=== PATIENT | female | born 1970 | race Two or more races ===

== ENCOUNTER 2025-05-01 08:52 | Outpatient (AMB) | payer MEDICAID, SELFPAY ==
[2025-05-01 09:22] VITALS: BP 136/80; PULSE 62; RESP 18; TEMP 36.1; O2SAT 97; BMI 41.1
--- NOTE | 2025-05-01 09:22 | ORTHONT_ITS ---
Vital signs 05/01/25 09:22 Height 1.57 m Height Method Measured Weight 101.831 kg Weight Measurement Method Standing Scale BMI 41.1 BP 136/80 H Blood Pressure Source Automatic Cuff Blood Pressure Location Right Upper Arm Position Sitting Respiration 18 Pulse 62 Pulse Source Monitor Temp 96.9 F Temp Source Temporal Artery Scan Pulse Oximetry (%) 97 Oxygen Delivery Method Room Air Med/Allergies Allergies & Medications Allergies No Known Drug Allergies Allergy (Verified 05/01/25 09:24) Medication Reconciliation meloxicam 7.5 mg tablet 7.5 mg PO QDAY #45 tabs 05/01/25 [Rx] Exam Exam Patient is in no acute distress and is cooperative with the examination today. Breathing is nonlabored. Patient has a normal mood and affect. Bilateral extremities were evaluated and demonstrates sensation intact to light touch. Palpable pedal pulses are present. No significant edema is present. Bilateral hips were examined. The patient has no pain with log roll of the hips. Internal rotation to 30 degrees and external rotation to 30 degrees is painless. Negative FADIR. Right knee was examined today. The right knee is in reasonable alignment. Range of motion from 0-120 degrees. Knee is stable to varus and valgus as well as AP translation with <5mm. Patient has a negative McMurrays. There is no pain with patellofemoral compression and no crepitus noted. The knee is nontender to palpation. Left knee was examined today. The left knee is in varus alignment. Range of motion from 0-115 degrees. Knee is stable to varus and valgus as well as AP translation with <5mm. Patient has a negative McMurrays. There is no pain with patellofemoral compression and no crepitus noted. The knee is tender to palpation medially. Left knee x-rays history demonstrates a meniscus tear as well as areas of high- grade chondral loss of the medial compartment Assessment and Plan Problem List (1) Arthritis of knee, left: Status: Acute Plan: Patient is a pleasant 54-year-old female with left knee pain and left knee arthritis. We discussed different treatment options. I would like to get a weightbearing x-ray to better evaluate the severity of the arthritis. On the MRI there appears to be large areas of chondral loss. We will get authorization for injections at the next visit Office Procedures GNS Level of Care Nursing/Assessment Patient Status: Initial/New Patient Nursing Assessment/Reassesment: Medication Reconciliation, Update PMH in EMR and Vital Signs Coordination of Care: Complex Care and Chronic Disease 1-5, Education Complex Pt/Fam, Consent,records obtained, informed consent, Lab and Imaging orders, Res ults/Orders obtained and Staff clarify orders Special Needs: Language special needs New Patient Charge New Patient Point Assignment: 1109 New Patient Point Charge: TECHNICAL SUPPORT INTERN Level 3 ([id number]) MA Intake Visit Data Collection New Patient or Established: New Patient (never been to [facility]) Reason for Visit:: KNEE PAIN Seen by Clinical Staff ONLY (RN/MA): No Verbal consent obtained for Telemed visit?: No Camera Engineer Required: Yes PCP or OBGYN visit in last 3 months: Yes Hx Now: No Do You Feel Safe at Home: Yes Authorities Contacted: N/A and Crisis Intervention Questionairres Past Medical History Past Medical History Have you ever been diagnosed with any of the following: Stomache/Intestinal Problems Colitis: Yes Obesity: Yes Subjective Visit Visit for: new patient and knee Immunization / Flu Flu Vaccine in the Last 12 Months: Yes Flu Vaccine Exclusion Criteria: Already Received History of Present Illness Chief complaint: LEFT KNEE PAIN Date of injury / onset of symptoms: A YEAR Pleasant 54 year old female that has has left knee pain for about a year due to having a falling. Patient latest xrays were done on December at [facility] which indicated minimal arthritis. Patient did receive a knee injection back in September that did help with some pain. The pain is medial and lateral. She has not had any NSAIDs. The pain is diffuse. There are no mechanical symptoms. Personal History Occupation: [employer] Red flag PMH: BMI BMI Counceling provided: Yes Pain Pain level (0-10): 5 Pain duration: comes and goes Pain location: inside (medial), outside (lateral), anterior and posterior Pain quality: dull and aching Pain timing: increases with activity Associated signs & symptoms: weakness Ambulatory data Ambulatory device: none Treatments Number of previous injections: 1 (help very little) Improvement with previous injections: Yes Number of Physical Therapy sessions: 0 Improvement with PT: No Improvement with NSAIDS: yes (ibuprofen ) Review of Systems Review of Systems: All systems negative unless otherwise noted in HPI.
--- NOTE | 2025-05-01 09:38 | XR_ITS ---
Examination: Bilateral AP knees standing single view PA lateral axial left knee 3 views TECHNIQUE: Bilateral AP knees standing single view Standing PA flexion left knee, axial left knee, standing lateral left knee 3 views total 4 views Date and time: May 01, 2025 1005 hours INDICATIONS: Left knee pain with joint popping after falling 10 months ago FINDINGS: Right knee no significant joint narrowing Moderate to advanced narrowing medial joint space left knee Moderate osteoarthritis left patellofemoral joint No patellar dislocation IMPRESSION: Moderate to advanced narrowing medial joint space left knee Moderate osteoarthritis left patellofemoral joint
== END 2025-05-01 09:47 | disposition home or self-care (01) ==
PROVIDERS: PCP Physician Assistant; Referring Provider Physician Assistant; Supervising Provider Orthopaedic Surgery Adult Reconstructive Orthopaedic Surgery; Visit Provider Orthopaedic Surgery Adult Reconstructive Orthopaedic Surgery
DX: M17.12 Unilateral primary osteoarthritis, left knee (principal); M25.562 Pain in left knee; S89.92XD Unspecified injury of left lower leg, subsequent encounter; W19.XXXD Unspecified fall, subsequent encounter
CPT/HCPCS: 73564; 99203; G0463